=== PATIENT | male | born 1990 | race Caucasian/White ===

== ENCOUNTER 2019-01-29 09:55 | Emergency (ER) | payer OTHER ==
[~2019-01-29] VITALS: Ht 172.7 cm; Wt 63.5 kg
[2019-01-29] MEDS ORDERED: Haloperidol 5mg/ml Inj IM ONE (10:00)
[2019-01-29] MEDS ORDERED: Haloperidol 5mg/ml Inj ONE (10:01)
[2019-01-29 10:10] VITALS: BP 136/72
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
--- NOTE | 2019-01-29 10:44 | NUR ---
ED Nurse Note: sleeping in bed without distress.
--- NOTE | 2019-01-29 11:02 | NUR ---
ED Nurse Note: blood and urine sent to the lab.
[2019-01-29 11:17] LABS: BASOPHILS % (AUTO) 1.6 % (0.0-2.0); EOSINOPHILS % (AUTO) 0.5 % (0.0-3.0); HEMATOCRIT 42.9 % (42.0-52.0); HEMOGLOBIN 14.2 G/DL (14.2-18.0); LYMPHOCYTES % (AUTO) 19.4 % (20.0-45.0); MEAN CORPUSCULAR VOLUME 92 FL (80-99); MONOCYTES % (AUTO) 6.3 % (1.0-10.0); NEUTROPHILS % (AUTO) 72.2 % (45.0-75.0); PLATELET COUNT 220 K/UL (150-450); RED BLOOD COUNT 4.67 M/UL (4.70-6.10); RED CELL DISTRIBUTION WIDTH 12.4 % (11.6-14.8); WHITE BLOOD COUNT 6.3 K/UL (4.8-10.8)
[2019-01-29 11:31] LABS: ANION GAP 9 mmol/L (5-15); BLOOD UREA NITROGEN 11 mg/dL (7-18); CALCIUM 8.4 MG/DL (8.5-10.1); CARBON DIOXIDE 26 MMOL/L (21-32); CHLORIDE 108 MMOL/L (98-107); CREATININE 0.8 MG/DL (0.55-1.30); POTASSIUM 3.9 MMOL/L (3.5-5.1); SODIUM 143 MMOL/L (136-145)
[2019-01-29 11:42] LABS: ALANINE AMINOTRANSFERASE 32 U/L (12-78); ALBUMIN 3.5 G/DL (3.4-5.0); ALBUMIN/GLOBULIN RATIO 1.1 (1.0-2.7); ALKALINE PHOSPHATASE 118 U/L (46-116); ASPARTATE AMINO TRANSFERASE 45 U/L (15-37); BILIRUBIN,TOTAL 0.2 MG/DL (0.2-1.0)
--- NOTE | 2019-01-29 13:28 | NUR ---
ED Nurse Note: NICKYD made aware of pt's condition.
--- NOTE | 2019-01-29 13:28 | NUR ---
ED Nurse Note: pt stood up and ambulated. [employer] at bedside. pt in handcuff.
[2019-01-29 13:40] VITALS: BP 130/84
--- NOTE | 2019-01-29 13:40 | NUR ---
ED Nurse Note: Pt cleared by health care Provider for discharge. Clearance for snf paper was handed to [employer]. DC instructions/prescription was given and explained to pt and verbalized understanding of teachings. pt is in handcuff. All medical deviecs such as ID band removed. Pt is AAO x4, ambulatory and left with all personal belongings.
== END 2019-01-29 13:40 ==
LOC: EDBD 09:55 → EMR 11:25
DX: F10.129 Alcohol abuse with intoxication, unspecified (principal); F15.10 Other stimulant abuse, uncomplicated; R45.1 Restlessness and agitation; Z78.1 Physical restraint status; Y90.8 Blood alcohol level of 240 mg/100 ml or more
CPT/HCPCS: 36415; 80053; 80196; 80307; 80329; 85025; 96372; J1630; Z7502; 99284